=== PATIENT | female | born 1985 | race African-American/Black ===

== ENCOUNTER 2017-12-02 18:09 | Emergency (ER) | payer OTHER ==
[~2017-12-02] VITALS: Ht 154.9 cm; Wt 63.5 kg
[2017-12-02 19:06] LABS: BASOPHILS 0.9 % (0.0-2.0); EOSINOPHILS 4.7 % (0.0-3.0); HEMATOCRIT 38.9 % (37.0-47.0); HEMOGLOBIN 13.4 gm/dL (12.0-15.0); MCH 27.7 pg (26.0-34.0); MCHC 34.5 g/dL (28.0-37.0); MCV 80.4 fL (80.0-100.0); MONOCYTES 5.2 % (1.0-8.0); PLATELET COUNT 265 thou/uL (150-400); POLYS 40.2 % (36.0-66.0); RBC 4.83 mil/uL (4.20-5.00); RDW 14.2 % (10.5-14.5); WBC 7.6 thou/uL (4.0-11.0)
[2017-12-02 19:18] LABS: CALCIUM 9.5 mg/dL (8.5-10.1); CREATININE 0.9 mg/dL (0.6-1.0); POTASSIUM 3.3 mmol/L (3.5-5.1)
[2017-12-02] MEDS ORDERED: TESSALON PERLE100 MG PO (19:51)
[2017-12-02] MEDS ORDERED: MUCINEX1200 MG PO (19:51)
[2017-12-02] MEDS ORDERED: IBUPROFEN 400400 M1 PO (19:55)
[2017-12-02 19:56] VITALS: BP 110/67
== END 2017-12-02 20:14 | disposition home or self-care (01) ==
LOC: ER 18:09
PROVIDERS: Student in an Organized Health Care Education/Training Program
DX: J06.9 Acute upper respiratory infection, unspecified (principal); B97.89 Other viral agents as the cause of diseases classified elsewhere